=== PATIENT | female | born 1990 | race Hispanic/Latino ===

== ENCOUNTER 2020-01-07 20:40 | Day surgery (SDC) | payer OTHER, SELFPAY ==
[2020-01-07 21:00] VITALS: BP 166/68; TEMP 98.8; BMI 34.2
[2020-01-07] MEDS ORDERED: hydrALAZINE 20 MG/ML VIAL SLOW IVP PRN (21:10)
--- NOTE | 2020-01-07 21:18 | PDOC.FPROB ---
FMR OB H&P: HPI - History of Present Illness Chief Complaint: Vaginal bleeding Indentification: 29yo twin gestation at approximately 28.6 History of Present Illness: Pt is visiting from [place]. Presented tonight due to vaginal bleeding. Started 1 hour RN GYNECOLOGY. Notes having clear discharge this morning and then this evening noticed blood when she wiped and blood tinge on her pads. Pt does note some very mild lower abdominal pain that she noticed earlier today. She denies any new vaginal discharge, contractions, dysuria, fever, chills, N/V/D. Pt states that she knows she is having a boy and a girl and that her placenta is located "on top of her uterus". She did having some vaginal bleeding around 9 weeks gestation that resolved quickly and she was told it was due to what the patient describes as a subchorionic hemorrhage. 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 FMR OB H&P: Medications - Current Home Medications: Medication Instructions Recorded Confirmed Type PNV No.118/Iron Fumarate/FA 1 tablet PO DAILY 01/07/20 01/07/20 History [ 19 Chewable Tablet] Allergies/Adverse Reactions: Allergies Allergy/AdvReac Type Severity Reaction Status Date / Time No Known Drug Allergies Allergy Verified 01/07/20 20:54 FMR OB H&P: ROS - Review of Systems General: denies: fever/chills, fatigue, recent trauma Eyes: denies: vision changes, double vision ENT: denies: nasal congestion, sore throat Cardiovascular: denies: chest pain, edema Respiratory: denies: cough, shortness of breath Gastrointestinal: reports: abdominal pain. denies: cramping, nausea, vomiting, diarrhea, constipation Genitourinary (Female): reports: vaginal discharge, vaginal bleeding. denies: dysuria, polyuria, contractions Musculoskeletal: denies: pain, swelling Neurologic: denies: numbness, weakness Integumentary: denies: itching, rash FMR OB H&P: Vital Signs - Maternal Vital signs: Vital Signs - First Documented Temp Pulse Resp BP 98.8 F 108 H 18 166/68 H 01/07/20 20:48 01/07/20 20:48 01/07/20 20:48 01/07/20 20:48 - Heart Tones Baseline: 150 (145) Variability: moderate Acceleration: present Deceleration: absent Category: category 1 [place] contractions every: None FMR OB H&P: Physical Exam - Physical Exam General: NAD, awake, alert and oriented HEENT: EOMI, MMM, no scleral icterus Heart: RRR, pulses present General: no respiratory distress, good air movement Abdomen: soft, gravid, non-tender Musculoskeletal: FROM in all four extremities Neurological: no focal deficit Skin: no rash, good tugor Lymphatic: no unusual bruising or bleeding, no purpura Psychiatric: intact recent and remote memory, good judgement and insight, normal mood and affect FMR OB H&P: A/P Disposition: Vaginal bleeding in 2nd Trimester Twin Gestation - Will get full US due to no records on hand and new vaginal bleeding - Spec exam with arvi red bleeding - Order CBC, KB, and Type/Screen Update 1046 - US showing funneling membranes - size not consistent with reported dates, measuring smaller around 23 weeks - Due to likely impending delivery and severe prematurity will plan to transfer patient to tertiary care center for higher level of care. - Will start Mg, pen G, and indomethacin Discussion: Date/Time: 01/07/202114 This H&P was discussed with Dr. Babcock who agrees with the above documentation and plan. Addendum - Attending - Attending Attestation Date/Time: 01/11/20 1006 I personally evaluated the patient and discussed the management with Dr. Cui I agree with the History, Examination, Assessment and Plan documented above with any addition or exceptions noted below. Pt transferred stable to [facility] by helicopter.
[2020-01-07 22:02] LABS: #Eosinphils 0.1 thou/uL (0.0-0.7); #Lymphocytes 1.8 thou/uL (1.20-3.40); #Monocytes 0.6 thou/uL (0.11-0.59); #Neutrophils 5.6 thou/uL (1.40-6.50); %Basophils 0.2 % (0.0-1.0); %Eosinophils 1.1 % (0.0-10.0); %Lymphocytes 21.9 % (21.0-51.0); %Monocytes 7.8 % (0.0-10.0); %Neutrophils 69.1 % (42.0-75.0); Hemoglobin 11.4 g/dL (12.0-16.0); Mean Corpuscular HGB CONC 35.1 g/dL (32.0-36.0); Mean Corpuscular Hemoglobin 31.5 pg (27.0-31.0); Mean Corpuscular Volume 89.6 fL (78.0-98.0); Mean Platelet Volume 6.8 fL (7.4-10.4); Platelet Count 298 thou/uL (130-400); RBC Distribution Width 12.2 % (11.5-14.5); Red Blood Cell (RBC) Count 3.63 mill/uL (4.20-5.40); White Blood Cell (WBC) Count 8.1 thou/uL (4.8-10.8)
[2020-01-07] MEDS ORDERED: Magnesium Sulfate 20 gm/500 ml 20 GM/500 ML BAG ONE (22:27)
[2020-01-07] MEDS ORDERED: Calcium Gluc 4.6 MEQ/10 ML (100 MG/ML) SLOW IVP PRN (22:28)
[2020-01-07] MEDS ORDERED: Betamet Acet/Betamet Na Ph 30 MG/5 ML VIAL IM SCH (22:30)
[2020-01-07] MEDS ORDERED: Magnesium Sulfate 20 gm/500 ml 20 GM/500 ML BAG IVPB SCH (22:45)
[2020-01-07] MEDS ORDERED: Magnesium Sulfate 20 GM/WATER 500 ML BAG IVPB SCH (22:45)
[2020-01-07] MEDS ORDERED: Penicillin G Potassium 5 MILL.UNITS VIAL ONE (23:07)
[2020-01-07] MEDS ORDERED: Penicillin G Potassium 5 MILL.UNITS in Sodium Chloride 0.9% 100 ML IVPB SCH (23:15)
[2020-01-07] MEDS ORDERED: Indomethacin 25 mg Capsule PO SCH (23:15)
[2020-01-07 23:23] LABS: Bacteria/HPF None Seen HPF (None Seen); Bilirubin Negative (Negative); Blood, Urine Negative (Negative); Clarity Clear (Clear); Glucose, Urine (Dipstick) Normal (Negative); Ketone, Urine Negative (Negative); Leukocyte Negative Leu/uL (Negative); Nitrite Negative (Negative); Protein, Urine (Dipstick) Negative (Neg-Trace); RBC/HPF None Seen HPF (0-3); Specific Gravity, Urine 1.006 (1.002-1.036); Squamous Epithelial 0-3 HPF (0-3); Urobilinogen Normal mg/dL (Less than 2); WBC/HPF 0-3 HPF (0-3)
[2020-01-08 00:16] LABS: SARS-CoV-2 NAA Rapid Test Not Detected (NotDetected)
--- NOTE | 2020-01-08 07:33 | ULT ---
OB ULTRASOUND: Date: 01/07/2020 HISTORY: Vaginal bleeding, twin . FINDINGS: There is a twin, viable intrauterine present. Twin A is on the maternal left side and breech. Twin B is more in the transverse lie, head on the rig ht side. The placenta for Twin A appears more anterior and the placenta for Twin B appears more posterior. The amniotic fluid index for Twin A is 16.1 and for Twin B is 15.8. The heart rate of Twin A is 149 beats/minute, and for Twin B is 147 beats/minute. Cervix appears incompetent with funneling of amniotic fluid seen. measurements are as follows: TWIN A: BPD: 5.7 cm, 23 weeks 4 days HC: 21.3 cm, 23 weeks 2 days AC: 17.5 cm, 22 weeks 3 days FL: 4.2 cm, 23 weeks 5 days TWIN B: BPD: 5.6 cm, 23 weeks 0 days HC: 21.7 cm, 23 weeks 5 days AC: 18.6 cm, 23 weeks 2 days FL: 3.8 cm 22 weeks 1 day IMPRESSION: Twin, viable intrauterine , as discussed above. Twin A corresponds to 23 weeks and 2 days with estimated date of delivery of 05/03/2020, and an estim ated weight of 560 +/- 83 gm. Twin B corresponds to 23 weeks and 0 days with estimated date of delivery of 05/05/2019, and an estim ated weight of 540 +/- 80 gm. There appear to be separate placentas and there does appear to be a membrane. Cervix does appear incompetent. There is funneling of the amnion through the cervical canal. POS: OFF
[2020-01-08] MEDS ORDERED: FLU VACC QS2020-21(6MOS UP)/PF 60 MCG/0.5 ML SYRINGE IM ONE (09:00)
== END 2020-01-07 23:45 | disposition short-term general hospital (02) ==
LOC: L&D/OP 20:40
PROVIDERS: ATTEND Obstetrics & Gynecology
DX: O46.93 Antepartum hemorrhage, unspecified, third trimester (principal); O30.043 Twin pregnancy, dichorionic/diamniotic, third trimester; O32.1XX1 Maternal care for breech presentation, fetus 1; O32.2XX2 Maternal care for transverse and oblique lie, fetus 2; Z3A.28 28 weeks gestation of pregnancy; Z20.828 Contact with and (suspected) exposure to other viral communicable diseases
CPT/HCPCS: 36415; 51702; 76810; 81001; 85025; 85460; 86850; 86900; 86901; 96365; 96366; 96372; 99285; J0702; J2540; J3475; U0002